=== PATIENT | female | born 1955 | race Caucasian/White ===

== ENCOUNTER → 2016-12-10 | Outpatient (CLI) | payer OTHER ==
--- NOTE | 2016-12-10 10:46 | CT ---
CT Right Lower Extremity With Attention to the Knee Indication: Pain. Preoperative evaluation for right total knee replacement. Technique: Spiral imaging was obtained through the right knee at 0.625 mm slice thickness along with spiral imaging through the right hip and right ankle at 2.5 mm slice thickness. Data were transmitted for subsequent HERMILO knee replacement. Dose reduction techniques utilized. Findings: Right Hip: Preserved joint space. No effusion or marginal osteophytes. Limited imaged portion of the pelvis is negative. A suture line is present along the rectosigmoid junction. No bone lesions. Right Knee: Yyry-jp-[id number] tricompartmental osteoarthritis is evidenced by joint space narrowing an d marginal osteophytes. Subchondral sclerosis preferentially affects the medial tibiofemoral and late ral patellofemoral joint lines. Moderate knee effusion. No loose body. Right Ankle: Negative. Impression: 1. Haib-vs-inucolon tricompartmental knee osteoarthritis. 2. Data were transmitted for HERMILO knee replacement surgery.
== END ==
LOC: FIMAGING 07:45
PROVIDERS: ATTEND Orthopaedic Surgery
DX: M17.11 Unilateral primary osteoarthritis, right knee (principal)

== ENCOUNTER 2016-12-31 09:04 | Observation (INO) | payer OTHER ==
[~2016-12-31 09:04] MED LIST: ACETAMINOPHEN 325 MG TAB PO ONE; CEFAZOLIN 2 GM/DEXTR 100 ML IV ONE; CHLORHEXIDINE GLUC HIBICLENS 118 ML BTL TP ONE; DEXAMETHASONE 4 MG/ML VIAL IVP ONE; FAMOTIDINE 20 MG TAB PO ONE; ROPI/epiNEPH/KETOROLAC JOINT COCKTAIL IU ONE; SKIN ADHESIVE (DERMABOND) 1 EACH TP ONE; TRANEXAMIC ACID 3,000 MG in NS 50 ML IRR ONE; TRANEXAMIC ACID 3,000 MG/50 ML BAG IRR ONE; VANCOMYCIN 1 GM VIAL IV ONE
[2016-12-31] MEDS ORDERED: DEXAMETHASONE 4 MG/ML VIAL ONE (09:17)
[2016-12-31] MEDS ORDERED: CEFAZOLIN 2 GM/DEXTROSE/100 ML BAG IV ONE (09:17)
[2016-12-31] MEDS ORDERED: ACETAMINOPHEN 325 MG TAB ONE (09:17)
[2016-12-31] MEDS ORDERED: FAMOTIDINE 20 MG TAB ONE (09:17)
[2016-12-31] MEDS ORDERED: LIDOCAINE 1% 5 ML SDV ONE (09:17)
[2016-12-31] MEDS ORDERED: LR 1,000 ML IV ONE (10:05)
[2016-12-31] MEDS ORDERED: LIDOCAINE 1% 5 ML SDV ID PRN (10:05)
[2016-12-31] MEDS ORDERED: MIDAZOLAM 2 MG/2 ML VIAL ONE (10:57)
[2016-12-31] MEDS ORDERED: PROPOFOL/EMULSION 500 MG/50 ML BOTTLE IV ONE (11:07)
[2016-12-31] MEDS ORDERED: BUPIVACAINE 0.5% 30 ML SDV ONE (12:02)
[2016-12-31] MEDS ORDERED: MAGNESIUM HYDROXIDE 30 ML UDCUP PO PRN (12:30)
[2016-12-31] MEDS ORDERED: POLYETHYLENE GLYCOL 3350 17 GM PKT PO PRN (12:30)
[2016-12-31] MEDS ORDERED: PHARMACY PAIN CONSULT 1 EA MISC PRN (12:30)
[2016-12-31] MEDS ORDERED: DIPHENOXYLATE/ATROPINE LOMOTIL 1 TAB PO PRN (12:30)
[2016-12-31] MEDS ORDERED: PROMETHAZINE HCL 25 MG/ML INJ IVP PRN (12:30)
[2016-12-31] MEDS ORDERED: ONDANSETRON 4 MG/2 ML VIAL IVP PRN (12:30)
[2016-12-31] MEDS ORDERED: diphenhydrAMINE 25 MG CAP PO PRN (12:30)
[2016-12-31] MEDS ORDERED: LR 1,000 ML IV SCH (12:30)
[2016-12-31] MEDS ORDERED: TEMAZEPAM 15 MG CAP PO PRN (12:30)
[2016-12-31] MEDS ORDERED: LACTULOSE 20 GM/30 ML UDCUP PO PRN (12:30)
[2016-12-31] MEDS ORDERED: ONDANSETRON DISINTEGRATING 4 MG TAB PO PRN (12:30)
[2016-12-31] MEDS ORDERED: PROMETHAZINE HCL 25 MG SUPPR PR PRN (12:30)
[2016-12-31] MEDS ORDERED: BISACODYL 10 MG SUPP PR PRN (12:30)
[2016-12-31] MEDS ORDERED: CYCLOBENZAPRINE 10 MG TAB PO PRN (12:30)
--- NOTE | 2016-12-31 12:30 | POSTOPPROG ---
Post Op Note Date of Operation: 12/31/16 Surgeon: Mic Uribe Electrician Rectifier Maintenance: lizzy uribe Anesthesiologist: dr. flowers Anesthesia: Spinal, Other (Specify) (adductor canal block) Pre-op Diagnosis: right knee OA Post-op Diagnosis: same Indication: right knee pain due to OA that failed conservative measures Procedure: right medial knee partial knee arthroplasty Findings: right severe medial knee OA Inf/Abcess present in the surg proc area at time of surgery?: No EBL: 50-100
[2016-12-31] MEDS ORDERED: TRIAMTERENE/HCTZ 37.5/25 1 EACH TAB PO PRN (12:32)
[2016-12-31] MEDS ORDERED: ceFAZolin 2 GM/DEXTROSE 100 ML IV SCH (14:00)
[2016-12-31] MEDS: ACETAMINOPHEN 325 MG TAB PO SCH (17:39)
[2016-12-31] MEDS: ceFAZolin 2 GM in D5W 100 ML IV SCH (20:57)
[2016-12-31] MEDS: oxyCODONE IR 5 MG TAB PO PRN (21:02)
[2016-12-31] MEDS: FAMOTIDINE 20 MG TAB PO SCH (21:03)
[2016-12-31] MEDS: ASPIRIN 325 MG TAB PO SCH (21:03)
[2016-12-31] MEDS: SENNOSIDES/DOCUSATE SODIUM TAB PO SCH (21:04)
[2017-01-01] MEDS: oxyCODONE IR 5 MG TAB PO PRN ×2 (01:06→12:51)
[2017-01-01] MEDS: ceFAZolin 2 GM in D5W 100 ML IV SCH (04:22)
[2017-01-01 05:32] LABS: HEMATOCRIT 32.8 % (38.0-47.0); HEMOGLOBIN 10.9 g/dL (12.6-16.3)
[2017-01-01] MEDS: ACETAMINOPHEN 325 MG TAB PO SCH ×3 (06:09→11:14)
[2017-01-01 08:26] VITALS: BP 149/80; PULSE 84; RESP 16; TEMP 97.9; O2SAT 99
[2017-01-01] MEDS: SENNOSIDES/DOCUSATE SODIUM TAB PO SCH (08:53)
[2017-01-01] MEDS: ASPIRIN 325 MG TAB PO SCH (08:54)
[2017-01-01] MEDS: FAMOTIDINE 20 MG TAB PO SCH (08:54)
[2017-01-01] MEDS ORDERED: ADDERALL 10 MG TAB PO SCH (09:00)
[2017-01-01] MEDS ORDERED: AMPHETAMINE PO SCH (09:00)
[2017-01-01] MEDS ORDERED: ESCITALOPRAM OXALATE 10 MG TAB PO SCH (09:00)
[2017-01-01] MEDS ORDERED: THYROID PORK PO SCH (09:00)
[2017-01-01] MEDS ORDERED: DEXTROAMPHETAMINE PO SCH (09:00)
[2017-01-01] MEDS ORDERED: valACYclovir 500 MG TAB PO SCH (09:00)
--- NOTE | 2017-01-01 09:25 | SOAPPROG ---
SOAP Progress Note Assessment/Plan: Assessment: Patient is doing well POD 1 s/p R med MPL 1.Pain management: pain is well controlled on oral pain meds 2.Anemia: level is expected initially postop. Asymptomatic. Cont to monitor for symptoms 3.VTE ppx: recommend aspirin 325mg daily. Cont OSMAR de la torre and SCD 4. d/c planning: d/c to home today pending release from PT. Plan: 01/01/17 09:24 Subjective: Ama is doing well today, states mild pain, denies SOB, chest pain and N/V. Objective: Vital Signs Temp Pulse Resp BP Pulse Ox 36.6 C 84 16 149/80 H 99 01/01/17 08:25 01/01/17 08:25 01/01/17 08:25 01/01/17 08:25 01/01/17 08:25 Laboratory Results 01/01/17 04:21 12/31/16 01/01/17 01/02/17 05:59 05:59 05:59 Intake Total 2330 Output Total 2630 700 Balance -300 -700 RLE: incision dressing is clean and dry, NVi, +pf/df ICD10 Worksheet Patient Problems: Problems Problem Status Onset Primary localized osteoarthritis of right knee Acute
--- NOTE | 2017-01-01 10:25 | GDS ---
ADMISSION DIAGNOSIS: Right knee osteoarthritis. DISCHARGE DIAGNOSIS: Right knee osteoarthritis. PROCEDURE: Right partial knee arthroplasty, medial compartment, robot assisted. VTE PROPHYLAXIS: Aspirin recommend 3 weeks daily. BRIEF DESCRIPTION OF HOSPITAL STAY: Patient was admitted for an elective joint arthroplasty. The p atient tolerated the procedure well and has passed physical therapy. The patient was given appropri ate antibiotic prophylaxis and venous thromboembolism prophylaxis. The patient's pain was well cont rolled on oral pain medication, patient was holding down food, and had urinated. Decision was made to discharge the patient. The patient was given post-operative prescriptions pre-operatively. PLAN: Please follow up as scheduled with Dr. Gilbert's office on January 20 at 10:45 a.m. /[id number]/MODL
--- NOTE | 2017-01-01 13:56 | GOP ---
DATE OF OPERATION: 12/31/2016 SURGEON: Roscoe Gilbert MD POLL CLERK: LUKE Ryan. ANESTHESIA: Spinal. PREOPERATIVE DIAGNOSIS: Right knee osteoarthritis. POSTOPERATIVE DIAGNOSIS: Right knee osteoarthritis. PROCEDURE PERFORMED: Right medial compartment partial knee replacement with computer navigation and robotic assist. FINDINGS/PATHOLOGY: Severe medial compartment osteoarthritis. INDICATIONS: This is a 61-year-old female with progressive pain of the right knee unresponsive to conservative care. Risks and benefits of surgical intervention were explained in detail. DESCRIPTION OF PROCEDURE: The patient was brought to the operating room and placed on the table in supine position. Spinal anesthesia was induced without difficulty. A pneumatic tourniquet was applied about the right knee, proximal thigh and the leg was prepped and draped in sterile fashion. Attention was turned first to the distal aspect of the right femur. At 3 cm proximal to the lateral rise of the femur, 2 percutaneous half pins were placed for fixation of the femoral array. In a similar fashion, 2 pins were placed anterolateral on the tibia for fixation of the tibial array. External land marking and registration of the hip center was performed without difficulty. After exsanguination by elevation, the tourniquet was inflated to mmHg. Incision was made from the tibial tuberosity to the superior pole of the patella. Dissection was carried out through the subcutaneous tissue to the deep fascia using Bovie electrocautery for hemostasis. Medial parapatellar arthrotomy was carried out to the superior pole of the patella. The medial collateral ligament was elevated and the infrapatellar fat pad was resected. Internal femoral and tibial registration was carried out without difficulty and the femoral and tibial checkpoints were placed and verified for accuracy. Attention was turned to the femur. The foot print for the size 3 femoral component was cut with the 6 mm bur using the GrabCAD robotic system and verified for accuracy against the CT based plan. The hole was cut for the femoral post. In a similar fashion, the 6 mm bur was used to cut the foot print for the size 4 tibial component using the [employer]CAD system and verified for accuracy against the CT based plan. Attention was turned to the posterior aspect of the knee and remnants of the medial meniscus were excised. The posterior capsule was injected with ropivacaine, epinephrine and Toradol. Trial reduction was carried out and there was excellent range of motion, alignment and stability using the size 3 femoral component and the size 4 tibial component, 4 x 8 mm polyethylene. All trials were then removed. The joint was thoroughly irrigated and carefully dried. One package of cement and 1 gram of vancomycin were mixed in the vacuum mixer and placed on the fixation surfaces of all components. The components were implanted and all excess cement was thoroughly removed. Implant placement was verified against the CT view plan and found to be excellent. The tourniquet was deflated and all bleeders were coagulated. The wound was thoroughly irrigated and closed using interrupted sutures of 2-0 Vicryl for the joint capsule. The subcu was closed with 3-0 Vicryl and the skin with 4-0 Monocryl. Dermabond and Steri-Strips were applied, followed by a compressive dressing. The patient was then moved from the operating room to the recovery room in good condition, having tolerated the procedure well. CASE CLASSIFICATION: Clean. /[id number]/MODL MTDD
== END 2017-01-01 12:57 | disposition home or self-care (01) ==
LOC: F3N 09:04 → INTOOBSV 09:04 → F3N 15:06
PROVIDERS: ADMIT Orthopaedic Surgery; ATTEND Orthopaedic Surgery
DX: M17.11 Unilateral primary osteoarthritis, right knee (principal)
CPT/HCPCS: 27446; 73560; 97110; 97116; 97161; 97165; 97535; G0378; C1713; J0171; J0690; J1100; J1885; J2250; J2704; J2795; J3370